=== PATIENT | female | born 1980 | race Caucasian/White ===

== ENCOUNTER 2016-09-16 13:35 | Day surgery (SDC) | payer OTHER ==
[~2016-09-16] VITALS: Ht 157.5 cm; Wt 85.2 kg
[~2016-09-16 13:35] MED LIST: FLUT9.9S NASAL; IBUPROFEN PO
[2016-09-16 14:52] VITALS: Ht 157.5 cm; Wt 85.2 kg
[2016-09-16 16:27] VITALS: BP_SYST 115; BP_SYST 126; BP_DIAS 67; BP_DIAS 69; PULSE 53; RESP 20
--- NOTE | 2016-09-16 18:40 | GILP ---
DATE OF PROCEDURE: NAME OF PROCEDURE: Colonoscopy and biopsy. SURGEON: Fredi Plata MD PREOPERATIVE DIAGNOSIS: Chronic diarrhea. POSTOPERATIVE DIAGNOSES 1. Colonoscopy all the way to the cecum and into the terminal ileum. 2. Normal terminal ileum. 3. Random biopsies were taken to rule out microscopic colitis. 4. Internal hemorrhoids. INDICATION FOR THE PROCEDURE: Ms. Gerda Moreno is a 36-year-old female patient who was complaining of chronic diarrhea. The patient was scheduled for colonoscopy for further evaluation. The procedure and possible complications were well explained to the patient. She understood and con sented to the procedure. DESCRIPTION OF PROCEDURE: Under the influence of anesthesia, the colonoscope was carefully introduc ed in the rectum and under direct vision, it was advanced all the way to the cecum and through the i leocecal valve into the terminal ileum. FINDINGS: The terminal ileum was normal. The colonic mucosa was normal. Random biopsies were take n to rule out microscopic colitis. The patient was noted to have internal hemorrhoids. She tolerated the procedure very well and there was no complication from the procedure. At the end of the procedures, she was awake with stable vital signs, and she was discharged home to the care of her family. IMPRESSION: Please see postoperative diagnoses. PLAN: 1. Bentyl 10 mg p.o. t.i.d. a.c. 2. Await histopathology report. Dictated By: FREDI ROSEN/RONN Conf#: [id number] DID#: [id number]
== END 2016-09-16 16:38 | disposition home or self-care (01) ==
LOC: GIL 13:35
PROVIDERS: ATTEND Internal Medicine Gastroenterology
DX: R19.7 Diarrhea, unspecified (principal); K64.8 Other hemorrhoids
CPT/HCPCS: 45380; 88305; Z7610

== ENCOUNTER 2016-10-21 13:16 | Day surgery (SDC) | payer OTHER ==
[~2016-10-21] VITALS: Ht 157.5 cm; Wt 85.0 kg
[2016-10-21] VITALS (10 sets, daily range): BP systolic 102–122; BP diastolic 67–91; PULSE 69–114; RESP 16–28; Ht 157.5 cm; Wt 85.0 kg
[~2016-10-21 13:16] MED LIST changes: -FLUT9.9S NASAL
--- NOTE | 2016-10-21 15:17 | HPN ---
Date/Time of Note Date/Time of Note DATE: 10/21/16 TIME: 15:17 Interval H&P Admission Note Pt. seen H&P reviewed: No system changes JUAN HARRIS MD Oct 21, 2016 15:17
[2016-10-21] MEDS ORDERED: ROCURONIUM 50 MG INJ ONE (16:00)
[2016-10-21] MEDS ORDERED: PROPOFOL 20 ML ONE (16:00)
[2016-10-21] MEDS ORDERED: MEPERIDINE 100 MG INJ ONE (16:00)
[2016-10-21] MEDS ORDERED: LIDOCAINE 2% (SDV) 5 ML INJ ONE (16:00)
[2016-10-21] MEDS ORDERED: SUCCINYLCHOLINE CHLORIDE 100 MG/5 ML SYG IV ONE (16:00)
[2016-10-21] MEDS ORDERED: GLYCOPYRROLATE 0.4 MG INJ ONE (16:00)
[2016-10-21] MEDS ORDERED: NEOSTIGMINE 3 MG/3 ML SYRINGE ONE (16:00)
[2016-10-21] MEDS ORDERED: DEXAMETHASONE 4 MG/ML 1 ML INJ ONE (16:02)
[2016-10-21] MEDS ORDERED: ONDANSETRON 4 MG INJ ONE (16:02)
[2016-10-21] MEDS ORDERED: LIDOCAINE 1%/EPI (MDV) 20 ML INJ ONE (16:06)
[2016-10-21] MEDS ORDERED: COCAINE 4% 4 ML TOP ONE (16:07)
[2016-10-21] MEDS ORDERED: BACITRACIN/POLYMYXIN 28.35 GM OINT TOP ONE (16:08)
--- NOTE | 2016-10-21 16:49 | OPR ---
Date/Time of Note Date/Time of Note DATE: 10/21/16 TIME: 16:47 Operative Report Procedure Date: Oct 21, 2016 Preoperative Diagnosis DNS, ITH Postoperative Diagnosis Same Operation Performed Septoplasty, submucous resection of inferior turbinates Surgeon: JUAN HARRIS MD Anesthesia: general Estimated Blood Loss: minimal Complications: None Pt Condition Post Procedure: stable Indications Nasal congestion. Operative\Procedure Findings Description of procedure: The patient was identified in the holding area. We had a discussion to confirm understanding of all indications risks benefits alternatives and postoperative care associated with the operation. The patient signed informed consent was taken to the operating room. The patient was laid supine on the operating room table and general anesthesia was achieved without difficulty. The face was draped in sterile fashion and the nose was packed with 4% cocaine pledgets. The nasal septum was infiltrated with 5 cc of 1% lidocaine with epinephrine in the submucoperiosteal plane bilaterally. A left sided [place] incision was made and submucoperichondreal flaps were raised. The bony cartilaginous junction of the septum was identified and entered. A deviated segments of bone and cartilage were isolated. A double- action scissor was used to transect the bony deviated segment of the skull base after which a Gayathri forcep was used to resect deviated segment of bone and cartilage. Care was taken to avoid excess cartilaginous resection. The flaps were returned to normal position and anterior rhinoscopy reveals midline septum. At this point the right inferior turbinate was medialized with a Mina elevator. The Coblation wand on a setting of 6 was used to enter the turbinate in the inferior medial submucosal compartment. 10 seconds of Coblation were performed at the 3rd 2nd and 1st ramírez after which the turbinate was crushed laterally into the lateral nasal wall with a Bishop elevator. The contralateral turbinate was addressed in similar fashion to complete the bilateral submucous resection and lateral fracturing of the inferior turbinates. A Merocel pack was placed on each side. The patient was awakened, extubated and taken to the PACU in stable condition. Complications: None. JUAN HARRIS MD Oct 21, 2016 16:49
[2016-10-21] MEDS ORDERED: HYDROCODONE/APAP (5/325) TAB PO PRN (17:00)
== END 2016-10-21 18:28 | disposition home or self-care (01) ==
LOC: SDS 13:16
PROVIDERS: ATTEND Otolaryngology
DX: J34.2 Deviated nasal septum (principal); E66.9 Obesity, unspecified; Z68.34 Body mass index [BMI] 34.0-34.9, adult
CPT/HCPCS: 30140; 30520; J0330; J1100; J2175; J2405; J2710; Z7512; Z7610

== ENCOUNTER 2017-04-28 05:53 | Inpatient (IN) | payer OTHER ==
[2017-04-27 10:07] VITALS: BMI 33.9
[~2017-04-28] VITALS: Ht 157.5 cm; Wt 82.9 kg
[2017-04-28] VITALS (23 sets, daily range): BP systolic 93–117; BP diastolic 49–75; PULSE 64–108; RESP 12–33; Ht 157.5 cm; Wt 82.9 kg
[2017-04-28] MEDS ORDERED: Metronidazole 500 MG in NS 100 ML IVPB SCH (06:00)
[2017-04-28] MEDS ORDERED: CEFAZOLIN 2 GM/50 ML (PMX) 50 ML IVPB SCH (06:00)
[2017-04-28] MEDS ORDERED: D5-NS + KCL 20 MEQ 1,000 ML IV SCH (06:00)
[2017-04-28] MEDS ORDERED: HYDR-906 PO (06:25)
[2017-04-28] MEDS ORDERED: THROMBIN 5000 UNIT VIAL ONE (06:58)
[2017-04-28] MEDS ORDERED: VASOPRESSIN 20 UNITS INJ ONE (06:58)
[2017-04-28] MEDS ORDERED: METHYLENE BLUE 1% 10 ML INJ ONE (06:58)
[2017-04-28] MEDS ORDERED: ROCURONIUM 50 MG INJ ONE (07:32)
[2017-04-28] MEDS ORDERED: PROPOFOL 20 ML ONE (07:33)
[2017-04-28] MEDS ORDERED: FENTAnyl 50 MCG/ML VIAL ONE (07:33)
[2017-04-28] MEDS ORDERED: MIDAZOLAM 1 MG/ML 2 ML INJ ONE (07:33)
[2017-04-28] MEDS ORDERED: morphine SULFATE/PF (10 MG/10 ML) INJ ONE (07:33)
[2017-04-28] MEDS ORDERED: LIDOCAINE 1% (MDV) 20 ML INJ ONE (07:33)
[2017-04-28] MEDS ORDERED: metroNIDAZOLE 500 MG/NS (PMX) 100 ML IVPB ONE (07:37)
[2017-04-28] MEDS ORDERED: CEFAZOLIN 1 GM INJ ONE (07:37)
--- NOTE | 2017-04-28 07:57 | HPN ---
Date/Time of Note Date/Time of Note DATE: 04/28/17 TIME: 07:57 Interval H&P Admission Note Pt. seen H&P reviewed: No system changes MIGUEL TARANGO MD Apr 28, 2017 07:57
[2017-04-28] MEDS ORDERED: DEXAMETHASONE 4 MG/ML 1 ML INJ ONE (08:33)
[2017-04-28] MEDS ORDERED: FAMOTIDINE 20 MG INJ ONE (08:33)
[2017-04-28] MEDS ORDERED: ONDANSETRON 4 MG INJ ONE (08:33)
[2017-04-28] MEDS ORDERED: SUGAMMADEX SODIUM 200 MG/2 ML VIAL IV ONE (10:12)
[2017-04-28] MEDS: HYDROmorphONE 1 MG/ML SYG IV PRN (10:56)
[2017-04-28] MEDS ORDERED: MEPERIDINE 25 MG INJ ONE (10:59)
[2017-04-28] MEDS ORDERED: CEFAZOLIN 1 GM in SOD CHLORIDE 0.9% 100 ML IVPB SCH (11:00)
[2017-04-28] MEDS ORDERED: HYDROmorphONE 1 MG/ML SYG IV PRN (11:00)
[2017-04-28] MEDS ORDERED: NALOXONE (0.4 MG/ML) INJ IV PRN (11:00)
[2017-04-28] MEDS ORDERED: KETOROLAC 30 MG INJ IV PRN (11:00)
[2017-04-28] MEDS ORDERED: ZOLPIDEM 5 MG TAB PO PRN (11:00)
[2017-04-28] MEDS ORDERED: DIPHENHYDRAMINE 50 MG INJ IV PRN (11:00)
[2017-04-28] MEDS ORDERED: NALBUPHINE HCL (10 MG/1 ML) INJ IV PRN (11:00)
[2017-04-28] MEDS ORDERED: ONDANSETRON 4 MG INJ IV PRN (11:00)
--- NOTE | 2017-04-28 11:03 | OPPN ---
Date/Time of Note Date/Time of Note DATE: 04/28/17 TIME: 10:58 Operative Report Preoperative Diagnosis adnexal mass and endometriosis Postoperative Diagnosis same with adhesions; path pending Operation/Procedure Performed Right cystectomy, right ureteral dissection, bilateral utero-sacral ablation, ablation of endometriosis Surgeon see signature line nutrition services assistant Hortencia FLEMING Anesthesia: other Estimated blood loss: 10 - 50 ml's Transfusion Required none Specimen right paratubal cyst Grafts/Implants none Complications none MIGUEL TARANGO MD Apr 28, 2017 11:03
[2017-04-28] MEDS ORDERED: MEPERIDINE 25 MG INJ IV ONE (11:30)
--- NOTE | 2017-04-28 13:08 | HP ---
DATE OF ADMISSION: 04/28/2017 HISTORY OF PRESENT ILLNESS: The patient is a 36-year-old female with history of adnexal mass and endometriosis status post prior surgery for endometriosis. The patient denies any chronic conditions. The patient was had recurrent endometriosis with abdominal pain. The patient was seen by Dr. Clifton in surgical consultation. Patient was brought to the hospital and underwent right cystectomy for right adnexal mass and right ureteral dissection and underwent bilateral uterosacral ablation, ablation of endometriosis. Postoperatively patient is experiencing moderate pain and mild nausea. The patient will be admitted for further management. PAST MEDICAL HISTORY: Per HPI. PAST SURGICAL HISTORY: Per HPI. SOCIAL HISTORY: The patient smokes about 10 cigarettes per day although stated she quit 2 weeks ago. Patient denies any alcohol use. Denies any illicit drug use. ALLERGIES: NO KNOWN ALLERGIES. MEDICATIONS: Monon and ibuprofen p.r.n. for pain. REVIEW OF SYSTEMS: A 12-point review of system is negative unless what is mentioned in HPI. PHYSICAL EXAMINATION: GENERAL: Well developed, obese female. Currently is awake, but forgetful, in no acute distress. VITAL SIGNS: Temperature is 97.9, pulse is 86, blood pressure 104/58, respiratory rate 18, oxygen saturation is 100 percent on 5 L nasal cannula. HEENT: Head is atraumatic, normocephalic. Pupils equal, round, reactive to light and accommodation. Oral mucosa is pink and moist. NECK: Supple. No cervical lymphadenopathy. No thyromegaly. CHEST: Lungs clear bilaterally. There is no rhonchi, wheezes, rales noted. CARDIOVASCULAR: Normal S1, S2. No murmurs, gallops, clicks, rubs noted. ABDOMEN: Protuberant, soft. Status post laparoscopic incisions which is dry, clean, and intact with bandages. Bowel sounds hypoactive. EXTREMITIES: No edema, clubbing, cyanosis. Pulses equal bilaterally 2+. SKIN: No rash. No petechiae noted. NEUROLOGICAL: Patient is awake, alert, and oriented x3. No focal deficits noted. Motor strength 5/5 in all extremities. ASSESSMENT AND PLAN: Adnexal mass and endometriosis, status post right cystectomy, right ureteral dissection, bilateral uterosacral ablation, ablation of endometriosis. We will continue Monon and morphine p.r.n. for pain and Zofran p.r.n. for nausea. Continue intravenous fluids and postoperative antibiotics. Follow up surgical recommendation. Pepcid for peptic ulcer disease prophylaxis and sequential compression device for deep venous thrombosis prophylaxis. Further recommendations based on clinical course. Plan of care discussed with Dr. Edmonds. Dictated By: Xin Mitchell NP /suzanna/fer /Document#: [id number]
[2017-04-28] MEDS: POTASSIUM CHLORIDE 20 MEQ in LACTATED RINGER'S 990 ML IV SCH (14:11)
[2017-04-28] MEDS: TRIMETHOBENZAMIDE 100 MG/ML VIAL IM PRN ×2 (14:28→23:25)
[2017-04-28] MEDS: CEFAZOLIN 1 GM/50 ML (PMX) 50 ML IVPB SCH ×2 (15:49→23:29)
[2017-04-28] MEDS: metroNIDAZOLE 500 MG/NS (PMX) 100 ML IVPB SCH (16:53)
[2017-04-28] MEDS: FAMOTIDINE 20 MG INJ IV SCH (20:29)
[2017-04-29] MEDS: metroNIDAZOLE 500 MG/NS (PMX) 100 ML IVPB SCH ×2 (00:08→08:33)
[2017-04-29] MEDS: HYDROmorphONE 1 MG/ML SYG IV PRN (00:19)
[2017-04-29 00:20] VITALS: BP 103/63; RESP 20
[2017-04-29] MEDS: POTASSIUM CHLORIDE 20 MEQ in LACTATED RINGER'S 990 ML IV SCH ×3 (00:30→12:27)
[2017-04-29 05:11] VITALS: BP 104/63; PULSE 84; RESP 20
[2017-04-29 05:19] LABS: BASOPHILS % 0.2 % (0.0-2.0); EOSINOPHILS % 0.1 % (0.0-7.0); HEMATOCRIT 38.9 % (37.0-47.0); HEMOGLOBIN 13.3 g/dl (12.0-16.0); LYMPHOCYTES # 1.8 10^3/ul (0.8-2.9); LYMPHOCYTES % 22.6 % (15.0-51.0); MEAN CORPUSCULAR HGB CONC 34.2 g/dl (32.0-37.0); MEAN CORPUSCULAR VOLUME 93.7 fl (82.0-101.0); MEAN PLATELET VOLUME 10.1 fl (7.4-10.4); MONOCYTE # 0.6 10^3/ul (0.3-0.9); MONOCYTES % 7.2 % (0.0-11.0); NEUTROPHIL # 5.6 10^3/ul (1.6-7.5); NEUTROPHILS % 69.7 % (39.0-77.0); PLATELET COUNT 163 10^3/UL (140-415); RED BLOOD COUNT 4.15 10^6/ul (4.20-5.40); RED CELL DISTRIBUTION WIDTH 12.1 % (11.5-14.5); WHITE BLOOD COUNT 8.1 10^3/ul (4.8-10.8)
[2017-04-29 05:33] LABS: CALCIUM 8.7 mg/dl (8.4-10.2); CREATININE 0.52 mg/dl (0.44-1.00); POTASSIUM 3.8 mmol/L (3.5-5.1)
[2017-04-29] MEDS: CEFAZOLIN 1 GM/50 ML (PMX) 50 ML IVPB SCH (07:44)
[2017-04-29 07:49] VITALS: BP 100/57; RESP 18
[2017-04-29] MEDS: FAMOTIDINE 20 MG INJ IV SCH (08:33)
[2017-04-29] MEDS ORDERED: morphine 2 MG INJ ONE (08:43)
[2017-04-29] MEDS ORDERED: KETOROLAC 15 MG INJ IV PRN (11:00)
[2017-04-29] MEDS ORDERED: morphine 2 MG INJ IV PRN (11:00)
[2017-04-29] MEDS ORDERED: ONDANSETRON 4 MG INJ IV PRN (11:00)
[2017-04-29] MEDS ORDERED: DIPHENHYDRAMINE 50 MG INJ IV PRN (11:00)
[2017-04-29] MEDS: HYDROCODONE/APAP (5/325) TAB PO PRN ×2 (12:25→18:10)
[2017-04-29 14:13] VITALS: BP 105/73; RESP 18
[2017-04-29] MEDS ORDERED: HYDR-906 PO (15:56)
--- NOTE | 2017-04-29 16:18 | PN ---
Date/Time of Note Date/Time of Note DATE: 04/29/17 TIME: 16:04 Assessment/Plan VTE Prophylaxis VTE Prophylaxis Intervention: SCD's Lines/Catheters IV Catheter Type (from Nrsg): Peripheral IV Urinary Cath still in place: No Assessment/Plan Chief Complaint/Hosp Course [place] d/mike pt is able to void,pain is well controlled. Problems: Assessment/Plan Adnexal mass and endometriosis, status post right cystectomy, right ureteral dissection, bilateral uterosacral ablation, ablation of endometriosis. Exam/Review of Systems Vital Signs Vitals Vital Signs Date Time Temp Pulse Resp B/P Pulse Ox O2 Delivery O2 Flow Rate FiO2 04/29/17 14:13 98.4 62 18 105/73 94 04/29/17 08:30 Nasal Cannula 2.0 Intake and Output 04/28/17 04/28/17 04/29/17 15:00 23:00 07:00 Intake Total 1900 ml 720 ml 1530 ml Output Total 950 ml 2650 ml 2100 ml Balance 950 ml -1930 ml -570 ml Exam Constitutional: alert Head: normocephalic Neck: supple Respiratory: normal air movement Cardiovascular: nl pulses Gastrointestinal: non-tender, other (s/p surgery), soft Musculoskeletal: nl gait and stance Results Result Diagram: 04/29/177 04/29/17 044 Results 24 hrs Laboratory Tests Test 04/29/17 04:47 04/29/17 05:50 White Blood Count 8.1 Red Blood Count 4.15 L Hemoglobin 13.3 Hematocrit 38.9 Mean Corpuscular Volume 93.7 Mean Corpuscular Hemoglobin 32.0 Mean Corpuscular Hemoglobin Concent 34.2 Red Cell Distribution Width 12.1 Platelet Count 163 Mean Platelet Volume 10.1 # Neutrophils % 69.7 Lymphocytes % 22.6 Monocytes % 7.2 Eosinophils % 0.1 Basophils % 0.2 Nucleated Red Blood Cells % 0.0 Neutrophils # 5.6 Lymphocytes # 1.8 Monocytes # 0.6 Eosinophils # 0.0 Basophils # 0.0 Nucleated Red Blood Cells # 0.0 Sodium Level 141 Potassium Level 3.8 Chloride Level 109 Carbon Dioxide Level 26 Anion Gap 10 Blood Urea Nitrogen 3 L Creatinine 0.52 Glucose Level 94 Calcium Level 8.7 Lab Scanned Report LAB Medications Medications Current Medications Morphine Sulfate (morphine) 2 mg Q2H PRN IV PAIN LEVEL 6-10 Last administered on 04/29/17 08:47; Admin Dose 2 MG; Start 04/29/17 at 11:00 Acetaminophen/ Hydrocodone Bitart ([place] (5/325)) 1 tab Q6H PRN PO PAIN LEVEL 6 -10 Last administered on 04/29/17 12:25; Admin Dose 1 TAB; Start 04/29/17 at 11 :00 Ketorolac Tromethamine (Toradol) 15 mg Q6H PRN IV PAIN; Start 04/29/17 at 11:00 ; Stop 05/02/17 at 10:59 Diphenhydramine HCl (Benadryl) 25 mg Q6H PRN IV ITCHING; Start 04/29/17 at 11: 00 Ondansetron HCl (Zofran Inj) 4 mg Q6H PRN IV NAUSEA AND/OR VOMITING; Start at 11:00 Famotidine 20 mg 20 mg Q12 IV Last administered on 04/29/17 08:33; Admin Dose 20 MG; Start 04/28/17 at 21:00 Potassium Chloride/Lactated Ringer's (KCl/Lr) 1,000 ml @ 80 mls/hr [id number] IV Last administered on 04/29/17 05:02; Admin Dose 80 MLS/HR; Start 04/28/17 at 12 :00 SERGEY MCKEON Apr 29, 2017 16:18
--- NOTE | 2017-04-29 17:01 | PN ---
Date/Time of Note Date/Time of Note DATE: 04/29/17 TIME: 16:57 Assessment/Plan VTE Prophylaxis VTE Prophylaxis Intervention: SCD's Lines/Catheters IV Catheter Type (from Nrsg): Peripheral IV Urinary Cath still in place: No Assessment/Plan Chief Complaint/Hosp Course endometriosis and pain Problems: Assessment/Plan A- doing well P- discharge Subjective 24 Hr Interval Summary Free Text/Dictation + flatus eats well Exam/Review of Systems Vital Signs Vitals Vital Signs Date Time Temp Pulse Resp B/P Pulse Ox O2 Delivery O2 Flow Rate FiO2 04/29/17 14:13 98.4 62 18 105/73 94 04/29/17 08:30 Nasal Cannula 2.0 Intake and Output 04/28/17 04/28/17 04/29/17 15:00 23:00 07:00 Intake Total 1900 ml 720 ml 1530 ml Output Total 950 ml 2650 ml 2100 ml Balance 950 ml -1930 ml -570 ml Exam Resp- clear CVS- NSR Abd- soft, NT Ext- NT no edema Results Result Diagram: 04/29/1744604/29/17446 Results 24 hrs Laboratory Tests Test 04/29/17 04:47 04/29/17 05:50 White Blood Count 8.1 Red Blood Count 4.15 L Hemoglobin 13.3 Hematocrit 38.9 Mean Corpuscular Volume 93.7 Mean Corpuscular Hemoglobin 32.0 Mean Corpuscular Hemoglobin Concent 34.2 Red Cell Distribution Width 12.1 Platelet Count 163 Mean Platelet Volume 10.1 # Neutrophils % 69.7 Lymphocytes % 22.6 Monocytes % 7.2 Eosinophils % 0.1 Basophils % 0.2 Nucleated Red Blood Cells % 0.0 Neutrophils # 5.6 Lymphocytes # 1.8 Monocytes # 0.6 Eosinophils # 0.0 Basophils # 0.0 Nucleated Red Blood Cells # 0.0 Sodium Level 141 Potassium Level 3.8 Chloride Level 109 Carbon Dioxide Level 26 Anion Gap 10 Blood Urea Nitrogen 3 L Creatinine 0.52 Glucose Level 94 Calcium Level 8.7 Lab Scanned Report LAB Medications Medications Current Medications Morphine Sulfate (morphine) 2 mg Q2H PRN IV PAIN LEVEL 6-10 Last administered on 04/29/17t 08:47; Admin Dose 2 MG; Start 04/29/17 at 11:00 Acetaminophen/ Hydrocodone Bitart ([place] (5/325)) 1 tab Q6H PRN PO PAIN LEVEL 6 -10 Last administered on 04/29/17 12:25; Admin Dose 1 TAB; Start 04/29/17 at 11 :00 Ketorolac Tromethamine (Toradol) 15 mg Q6H PRN IV PAIN; Start 04/29/17 at 11:00 ; Stop 05/02/17 at 10:59 Diphenhydramine HCl (Benadryl) 25 mg Q6H PRN IV ITCHING; Start 04/29/17 at 11: 00 Ondansetron HCl (Zofran Inj) 4 mg Q6H PRN IV NAUSEA AND/OR VOMITING; Start at 11:00 Famotidine 20 mg 20 mg Q12 IV Last administered on 04/29/17 08:33; Admin Dose 20 MG; Start 04/28/17 at 21:00 Potassium Chloride/Lactated Ringer's (KCl/Lr) 1,000 ml @ 80 mls/hr [id number] IV Last administered on 04/29/17 05:02; Admin Dose 80 MLS/HR; Start 04/28/17 at 12 :00 MIGUEL TARANGO MD Apr 29, 2017 17:01
--- NOTE | 2017-04-29 18:04 | DS ---
Date/Time of Note Date/Time of Note DATE: 04/29/17 TIME: 18:03 Discharge Summary Admission/Discharge Info Admit Date/Time Apr 28, 2017 at 05:53 Discharge Date/Time Patient Condition: Stable Hx of Present Illness The patient is a 36-year-old female with history of adnexal mass and endometriosis status post prior surgery for endometriosis. The patient denies any chronic conditions. The patient was had recurrent endometriosis with abdominal pain. The patient was seen by Dr. Clifton in surgical consultation. Patient was brought to the hospital and underwent right cystectomy for right adnexal mass and right ureteral dissection and underwent bilateral uterosacral ablation, ablation of endometriosis. Postoperatively patient is experiencing moderate pain and mild nausea. The patient will be admitted for further management. Hospital Course Adnexal mass and endometriosis, status post right cystectomy, right ureteral dissection, bilateral uterosacral ablation, ablation of endometriosis. We will continue [place] and morphine p.r.n. for pain and Zofran p.r.n. for nausea. Continue intravenous fluids and postoperative antibiotics. Follow up surgical recommendation. Pepcid for peptic ulcer disease prophylaxis and sequential compression device for deep venous thrombosis prophylaxis. Home Meds Active Scripts Hydrocodone/Acetaminophen ([place] 5-325 Tablet) 1 Each Tablet, 1 EACH PO Q4 for PAIN, #30 TAB Prov:SERGEY MCKEON 04/29/17 Discontinued Reported Medications [Ibuprofen] No Conflict Check, PO DAILY for PAIN 05/01/16 Follow-up Plan Up with Dr. Clifton in 1-2 weeks Primary Care Provider Tomy Hinojosa MD Time spent on discharge: < 30 minutes Pending Labs Laboratory Tests Test 04/29/17 04:47 04/29/17 05:50 White Blood Count 8.110^3/ul (4.8-10.8) Red Blood Count 4.1510^6/ul (4.20-5.40) Hemoglobin 13.3g/dl (12.0-16.0) Hematocrit 38.9% (37.0-47.0) Mean Corpuscular Volume 93.7fl (82.0-101.0) Mean Corpuscular Hemoglobin 32.0pg (29.0-33.0) Mean Corpuscular Hemoglobin Concent 34.2g/dl (32.0-37.0) Red Cell Distribution Width 12.1% (11.5-14.5) Platelet Count 78488^3/UL (140-415) Mean Platelet Volume 10.1fl (7.4-10.4) Neutrophils % 69.7% (39.0-77.0) Lymphocytes % 22.6% (15.0-51.0) Monocytes % 7.2% (0.0-11.0) Eosinophils % 0.1% (0.0-7.0) Basophils % 0.2% (0.0-2.0) Nucleated Red Blood Cells % 0.0/100WBC (0.0-0.0) Neutrophils # 5.610^3/ul (1.6-7.5) Lymphocytes # 1.810^3/ul (0.8-2.9) Monocytes # 0.610^3/ul (0.3-0.9) Eosinophils # 0.010^3/ul (0.0-0.5) Basophils # 0.010^3/ul (0.0-0.1) Nucleated Red Blood Cells # 0.010^3/ul (0.0-0.0) Sodium Level 141mmol/L (135-144) Potassium Level 3.8mmol/L (3.5-5.1) Chloride Level 109mmol/L (97-110) Carbon Dioxide Level 26mmol/L (21-31) Anion Gap 10 (8-16) Blood Urea Nitrogen 3mg/dl (7-20) Creatinine 0.52mg/dl (0.44-1.00) Glucose Level 94mg/dl (70-220) Calcium Level 8.7mg/dl (8.4-10.2) Lab Scanned Report [id number] SERGEY MCKEON Apr 29, 2017 18:04
[2017-04-30] MEDS ORDERED: FAMOTIDINE 20 MG TAB PO SCH (09:00)
--- NOTE | 2017-05-02 13:12 | OPR ---
Date/Time of Note Date/Time of Note DATE: 05/02/17 TIME: 13:11 Operative Report Free Text/Dictation OPERATIVE REPORT [facility] Name: Gerda Moreno Medical Date: 04/28/17 Preoperative Diagnosis: 1- Adnexal mass 2- Chronic pelvic pain and known endometriosis Postoperative Diagnosis: 1- Same; pathology pending 2- Pelvic adhesions 3- Right uretral stricture Procedures: 1- Right para-tubal cystectomy 2- Right ureteral dissection with repositioning 3- Endometriosis ablation and electrocautery of utero-sacral ligaments Surgeon: Dr. Tarango Drug Coordinator: Hortencia Morton Anesthesia: General Indications for Procedure: The patient is a 36- year old female with a 4- cm cystic right sided pelvic mass and pain and a history of endometriosis with normal markers as appropriate for the patients age with all risks considered. After all options were presented with risks and benefits she agreed to a laparoscopy with a probable cystectomy, possible salpingoophorectomy and ablation of endometriosis and utero -sacral ligament ablation vs possible staging. Findings and Summary After exploration we observed very extensive adhesions, especially involving the Name: Gerda Moreno Medical mass and sidewall. A right retroperitoneal opening was needed and the ureter was dissected and mobilized, permitting enterolysis and the the cystic structure to be mobilized and a cystectomy was completed and a negative frozen section was obtained consistent with a benign mass. With the ureter visualized adjacent endometriosis was ablated and the utero-sacral ligament ligaments were cauterized. Findings and Procedure: After being prepped and draped in the usual manner a 5-millimeter trocar was inserted directly cephlad to the umbilicus without incident. Subsequently, we insufflated to 15 mm Hg and inserted two 5 millimeter trocars laterally without incident and then placed and a 12 mm trocar suprapubically without incident. At this time, the right adnexa was observed to be enlarged to 4-5 cm and the mass and densely adherent to the sidewall and was darkened and a para-tubal mass with broad ligament endometriosis. The other side was grossly normal in appearance other than endometriosis. Hence, on the side of the pathology, the retroperitoneum was opened with the Omni laterally and the ureter identified and noted to be densely adherent to the broad ligament adjacent to the aforementioned mass and somewhat strictured. The ureter was dissected and repositioned laterally with a endo-dissector and Omni with care and lateralized. Subsequently, the capsule was cut with a Gyrus bipolar cutting forceps and Omni and extended. The cyst was enucleated from the adjacent tissue with sharp with blunt dissection using counter traction with the Thunderbeat , endo-dissector and Omni. The Omni and endo-dissector were used throughout the procedure for deeper hemostasis. The cyst was placed in an endo- sac, and the contents evacuated as completely as possible by cutting with the Omni and aspirating. The sac was then removed through the 12 mm suprapubic trocar site and a negative frozen section was obtained consistent with a benign cyst. [facility] the base of the cyst was ablated with the argon beam fountain manager using low wattage. At this time we fulgurated the broad ligament with the ureter visualized and the ovary minimally all for endometriosis and with the ureter visualized the utero-sacral ligament immediately adjacent to the uterus was cauterized with a Thunderbeat. Subsequently, contralateralally the retroperitoneum was opened laterally, the ureter visualized and endometriosis ablated with the argon beam fountain manager at appropriate low wattage. The utero- sacral ligament was cauterized as described contralateralally. After irrigating and assuring hemostasis the 12 millimeter trocar was removed and the fascia was closed with 0-vicryl using an endo-close devise. The gas was removed and the skin of all sites then closed with 4-0 Monocryl suture. The EBL was 25cc and the patient tolerated the procedure well and left the OR in good condition. Elvis Tarango M.D. Surgeon see signature line Anesthesia Type: other Estimated Blood Loss: 10 - 50 ml's ELVIS TARANGO MD May 02, 2017 13:12
== END 2017-04-29 18:40 | disposition home or self-care (01) | DRG 743 ==
LOC: REC 05:53 → EDSTATUS 07:30 → MS1 11:53
PROC: 0U5B4ZZ Destruction of Endometrium, Percutaneous Endoscopic Approach (ICD-10-PCS; 2017-04-28)
PROC: 0TS64ZZ Reposition Right Ureter, Percutaneous Endoscopic Approach (ICD-10-PCS; 2017-04-28)
PROC: 0UB04ZZ Excision of Right Ovary, Percutaneous Endoscopic Approach (ICD-10-PCS; principal; 2017-04-28 07:30)
DX: N83.201 Unspecified ovarian cyst, right side (principal); N80.3 Endometriosis of pelvic peritoneum
CPT/HCPCS: 80048; 85025; 86850; 86900; 86901; 86920; 87086; 88304; J0690; J1100; J1170; J1200; J2175; J2250; J2270; J2274; J2405; J3010; J3250; J3480; J7120

== ENCOUNTER 2017-05-06 07:57 | Emergency (ER) | payer OTHER ==
[~2017-05-06] VITALS: Ht 157.5 cm; Wt 83.0 kg
[~2017-05-06 07:57] MED LIST changes: +HYDR-906 PO; -IBUPROFEN PO
[2017-05-06 07:58] VITALS: Ht 157.5 cm; Wt 83.0 kg
[2017-05-06] MEDS ORDERED: morphine 4 MG/ML VIAL IV STA (08:01)
[2017-05-06] MEDS ORDERED: ONDANSETRON 4 MG INJ IV STA (08:01)
[2017-05-06] MEDS ORDERED: KETOROLAC 30 MG INJ IV STA (08:01)
[2017-05-06] MEDS ORDERED: SOD CHLORIDE 0.9% 1,000 ML IV STA (08:01)
--- NOTE | 2017-05-06 08:44 | ERD ---
ER Documentation Chief Complaint Date/Time DATE: 05/06/17 TIME: 08:40 Chief Complaint PELVIC PAIN , HAD ENDOMETRIAL ABLATION LAST THURSDAY HPI This is a 36-year-old female postop day 8 after the patient underwent an endometrial ablation for an adnexal mass and endometriosis. Her surgeon was OB/ RADIATION PROTECTION ENGINEER, Dr. Clifton, who performed the surgery at [facility]. Has been taking [place] for analgesia control. However the patient indicates that upon awakening this morning 2 hours prior to arrival her postoperative pain significantly worsened. She states the pain is diffuse abdominal cramping , 10 out of 10 in intensity that is worse when standing and better when lying supine. She states the pain also radiates to the rectum. She denies any abnormal vaginal bleeding. She has had no frequency urgency or dysuria. She denies any fever shaking or chills. She denies any numbness or tingling of her lower extremities. She has no shortness of breath at rest or exertion. She denies any calf tenderness. ROS All systems reviewed and are negative except as per history of present illness. Medications Home Meds Active Scripts Ibuprofen* (Motrin*) 800 Mg Tab, 800 MG PO Q6H Y for PAIN AND OR ELEVATED TEMP, #30 TAB Prov:SIDNEY NASCIMENTO 05/06/17 Discontinued Reported Medications [Ibuprofen] No Conflict Check, PO DAILY for PAIN 05/01/16 Discontinued Scripts Hydrocodone/Acetaminophen ([place]estead 5-325 Tablet) 1 Each Tablet, 1 EACH PO Q4 for PAIN, #30 TAB Prov:SERGEY MCKEON 04/29/17 Allergies Allergies: Coded Allergies: No Known Allergy (Unverified , 04/28/17) PMhx/Soc History of Surgery: Yes (T AND A, LAP FOR ENDOMETRIOSIS) Anesthesia Reaction: No Hx Neurological Disorder: No Hx Respiratory Disorders: No Hx Cardiac Disorders: No Hx Psychiatric Problems: No Hx Miscellaneous Medical Probl: No Hx Alcohol Use: No Hx Substance Use: No Hx Tobacco Use: Yes Smoking Status: Former smoker Physical Exam Vitals Vital Signs Date Time Temp Pulse Resp B/P Pulse Ox O2 Delivery O2 Flow Rate FiO2 05/06/17 07:58 98.2 84 18 120/76 99 Physical Exam Constitutional:Well-developed. Well-nourished. HEENT:Normocephalic. Atraumatic.Pupils were equal round reactive to light. Moist mucous membranes.No tonsillar exudates. Neck: No nuchal rigidity. No lymphadenopathy. No posterior cervical spine tenderness or step-offs. Respiratory: Not using accessory muscles of respiration.Lungs were clear to auscultation bilaterally. No rhonchi. No rales. No wheezing. Cardiovascular: Regular rate regular rhythm.No murmurs. No rubs were appreciated.S1, S2 normal. Distal pulses are palpable 2+ bilaterally. GI: Surgical incision scars in the bilateral lower quadrants umbilicus and suprapubic region were clean dry and intact. Diffuse abdominal tenderness with no rebound or guarding. Bowel sounds were hypoactive. No pulsatile abdominal masses or bruits. No flank or periumbilical ecchymosis. : Pelvic exam was performed by myself and the patient denied a female nurse communications maintainer to be present. There is no gross blood present within the vaginal vault. No cervical motion tenderness. No adnexal tenderness or adnexal masses. No endocervical discharge RECTAL: No surrounding erythremia normal rectal tone and no gross blood per rectum Muscle skeletal: Full range of motion of both the upper and lower extremities bilaterally.Normal muscle tone.No assymetrical calf tenderness or swelling. Skin: No petechia, no purpura. No lesions on the palms or the soles of the feet. No maculopapular rash. NEURO: Patient was alert, awake, orientated x3.No facial droop. Gait observed and normal with no ataxia.Speech had regular rate and rhythm. No focal neurological deficits. Result Diagram: 05/06/17 0845 05/06/17 0845 Results 24 hrs Laboratory Tests Test 05/06/17 08:45 White Blood Count 9.710^3/ul Red Blood Count 4.6710^6/ul Hemoglobin 14.9g/dl Hematocrit 43.2% Mean Corpuscular Volume 92.5fl Mean Corpuscular Hemoglobin 31.9pg Mean Corpuscular Hemoglobin Concent 34.5g/dl Red Cell Distribution Width 12.1% Platelet Count 77029^3/UL Mean Platelet Volume 10.0fl Neutrophils % 60.6% Lymphocytes % 26.9% Monocytes % 5.5% Eosinophils % 6.3% Basophils % 0.4% Nucleated Red Blood Cells % 0.0/100WBC Neutrophils # 5.910^3/ul Lymphocytes # 2.610^3/ul Monocytes # 0.510^3/ul Eosinophils # 0.610^3/ul Basophils # 0.010^3/ul Nucleated Red Blood Cells # 0.010^3/ul Prothrombin Time 13.2Sec Prothrombin Time Ratio 1.0 INR International Normalized Ratio 1.00 Activated Partial Thromboplast Time 29.2Sec Urine Color YELLOW Urine Clarity SLIGHTLY CLOUDY Urine pH 7.0 Urine Specific [place] 1.015 Urine Ketones NEGATIVEmg/dL Urine Nitrite NEGATIVEmg/dL Urine Bilirubin NEGATIVEmg/dL Urine Urobilinogen NEGATIVEmg/dL Urine Leukocyte Esterase TRACELeu/ul Urine Microscopic RBC 0/HPF Urine Microscopic WBC 0/HPF Urine Squamous Epithelial Cells FEW/HPF Urine Bacteria FEW/HPF Urine Hemoglobin NEGATIVEmg/dL Urine Glucose NEGATIVEmg/dL Urine Total Protein NEGATIVEmg/dl Sodium Level 143mmol/L Potassium Level 3.7mmol/L Chloride Level 108mmol/L Carbon Dioxide Level 26mmol/L Anion Gap 13 Blood Urea Nitrogen 8mg/dl Creatinine 0.72mg/dl Glucose Level 103mg/dl Calcium Level 9.3mg/dl Total Bilirubin 0.2mg/dl Direct Bilirubin 0.00mg/dl Indirect Bilirubin 0.2mg/dl Aspartate Amino Transf (AST/SGOT) 26IU/L Alanine Aminotransferase (ALT/SGPT) 41IU/L Alkaline Phosphatase 85IU/L Total Protein 6.9g/dl Albumin 3.9g/dl Globulin 3.00g/dl Albumin/Globulin Ratio 1.30 Current Medications Medications (Trade) Dose Ordered Sig/Jhonatan Route PRN Reason Start Time Stop Time Status Last Admin Dose Admin Sodium Chloride (NS) 1,000 ml @ 1,000 mls/hr Q1H STAT IV 05/06/17 08:01 05/06/17 09:00 DC 05/06/17 08:53 Morphine Sulfate (morphine) 4 mg ONCE STAT IV 05/06/17 08:01 05/06/17 08:03 DC 05/06/17 08:54 Ketorolac Tromethamine (Toradol) 30 mg ONCE STAT IV 05/06/17 08:01 05/06/17 08:03 DC 05/06/17 08:54 Ondansetron HCl (Zofran Inj) 4 mg ONCE STAT IV 05/06/17 08:01 05/06/17 08:03 DC 05/06/17 08:53 IV Flush 10 ml 10 ml STK-MED ONCE .ROUTE 05/06/17 09:02 05/06/17 09:03 DC Sodium Chloride (NS) 100 ml @ ud STK-MED ONCE .ROUTE 05/06/17 09:02 05/06/17 09:03 DC Iohexol (Omnipaque 300mg/ ml) 150 ml STK-MED ONCE .ROUTE 05/06/17 09:02 05/06/17 09:03 DC Procedures/MDM This patient presented to the emergency department with abdominal pain and was seen and evaluated by myself. My differential diagnosis included but was not limited to abdominal aortic aneurysm, appendicitis, pancreatitis, perforated peptic ulcer, perforated viscus, Boerhaaves syndrome or visceral pain such as diverticulitis, DKA, esophagitis, hepatitis or bowel obstruction. The patient was placed on a manager monitoring, continuous pulse oximetry, and IV access was established by nursing staff. She received intravenous morphine Zofran and Toradol. Given that the patient is postop day #[address] I did obtain a CT scan of the abdomen to rule out postoperative complication such as perforation. CT scan reviewed by the radiologist myself indicated the followin. Small amount of free fluid in the cul-de-sac. Negative for abdominal free air or abscess. 2. Low density lesions involving the right and left adnexa likely ovarian cystic masses. Addition the posterior uterine body is not 05 of 0.3 cm low density likely a leiomyoma. A pelvic ultrasound is suggested if clinically indicated for further evaluation. 3. No evidence of gastrointestinal disease. 4. No evidence calcified urinary calculi or obstructive uropathy. 5. Tiny fat containing umbilical hernia without herniated bowel or strangulation. Obtained an ultrasound of the patient's pelvis which indicated the following read by the radiologist: 1. Fibroid in the uterus measuring 3.3 cm in maximal dimension. 2. Left adnexal mass which is probably the ovary with hemorrhagic cysts. Follow -up ultrasound in 3 months advised. 3. Otherwise unremarkable study. Has obtained an ultrasound of the pelvis which showed no abscess is present. The patient had no leukocytosis. There is no evidence of urinary tract infection. Her pain is improved and she does have a postoperative appointment in the next several days with her GOLF COURSE ARCHITECT. I did feel this was normal postoperative pain with no complications. The patient was discharged home in fair condition. They were instructed to return to the emergency department at any time if there was any worsening of their condition. The patient stated they would follow up with their PCP in the next 24-48 hours to initiate a suitable medication regimen under the care of their PCP as well as to allow their PCP to monitor any drug reactions. The patient was discharged home with prescriptions after they gave informed consent to the new medication. They were also fully informed by myself on the adverse effects and adverse drug interactions in order to provide adequate safeguards to prevent possible adverse reactions to medications. Departure Diagnosis: Primary Impression: Postoperative generalized abdominal pain Additional Impression: Hemorrhagic ovarian cyst Condition: Fair SIDNEY NASCIMENTO May 06, 2017 08:44
[2017-05-06] MEDS ORDERED: IOHEXOL 300MG/ML 150 ML BTL ONE (09:02)
[2017-05-06] MEDS ORDERED: SOD CHLORIDE 0.9% 100 ML ONE (09:02)
[2017-05-06 09:10] LABS: BASOPHILS % 0.4 % (0.0-2.0); EOSINOPHILS # 0.6 10^3/ul (0.0-0.5); EOSINOPHILS % 6.3 % (0.0-7.0); HEMATOCRIT 43.2 % (37.0-47.0); HEMOGLOBIN 14.9 g/dl (12.0-16.0); LYMPHOCYTES # 2.6 10^3/ul (0.8-2.9); LYMPHOCYTES % 26.9 % (15.0-51.0); MEAN CORPUSCULAR HEMOGLOBIN 31.9 pg (29.0-33.0); MEAN CORPUSCULAR HGB CONC 34.5 g/dl (32.0-37.0); MEAN CORPUSCULAR VOLUME 92.5 fl (82.0-101.0); MONOCYTE # 0.5 10^3/ul (0.3-0.9); MONOCYTES % 5.5 % (0.0-11.0); NEUTROPHIL # 5.9 10^3/ul (1.6-7.5); NEUTROPHILS % 60.6 % (39.0-77.0); PLATELET COUNT 246 10^3/UL (140-415); RED BLOOD COUNT 4.67 10^6/ul (4.20-5.40); RED CELL DISTRIBUTION WIDTH 12.1 % (11.5-14.5); WHITE BLOOD COUNT 9.7 10^3/ul (4.8-10.8)
[2017-05-06 09:14] LABS: ADD UMIC YES; UR ASCORBIC ACID NEGATIVE (NEGATIVE); UR BACTERIA FEW /HPF (NONE SEEN); UR BILIRUBIN (Dip) NEGATIVE (NEGATIVE); UR BLOOD (Dip) NEGATIVE (NEGATIVE); UR CLARITY SLIGHTLY CLOUDY (CLEAR); UR COLOR YELLOW (YELLOW); UR GLUCOSE (Dip) NEGATIVE (NEGATIVE); UR KETONES (Dip) NEGATIVE (NEGATIVE); UR LEUKOCYTE ESTERASE (Dip) TRACE Leu/ul (NEGATIVE); UR NITRITE (Dip) NEGATIVE (NEGATIVE); UR RBC 0 /HPF (0-5); UR SPECIFIC GRAVITY (Dip) 1.015 (1.003-1.030); UR SQUAMOUS EPITHELIAL CELL FEW /HPF (FEW); UR TOTAL PROTEIN (Dip) NEGATIVE (NEGATIVE); UR UROBILINOGEN (Dip) NEGATIVE (NEGATIVE)
[2017-05-06 09:31] LABS: PROTIME 13.2 Sec (12.2-14.2)
[2017-05-06 09:32] LABS: PARTIAL THROMBOPLASTIN TIME 29.2 Sec (25.0-35.0)
[2017-05-06 09:34] LABS: ALBUMIN 3.9 g/dl (3.3-4.9); ALBUMIN/GLOBULIN RATIO 1.3; BILIRUBIN,INDIRECT 0.2 mg/dl (0-1.1); BILIRUBIN,TOTAL 0.2 mg/dl (0.2-1.3); CALCIUM 9.3 mg/dl (8.4-10.2); CREATININE 0.72 mg/dl (0.44-1.00); POTASSIUM 3.7 mmol/L (3.5-5.1); TOTAL PROTEIN 6.9 g/dl (6.1-8.1)
--- NOTE | 2017-05-06 09:34 | RADRPT ---
PROCEDURE: CT Abdomen and pelvis with contrast. CLINICAL INDICATION: Abdominal pain. Recent surgery for endometriosis. TECHNIQUE: CT scan of the abdomen and pelvis with contrast was performed on a multidetector high-r [employer] CT scan. The patient was scanned following the uncomplicated intravenous administration o f 100 ml Omnipaque-300. Coronal and sagittal reformatted images were obtained from the axial source images. Standard CT of the abdomen pelvis with contrast protocols were performed. The total exam CTDI equals 18.02 mGy and the total exam DLP equals 1051.78 mGy-cm. One or more of the following dose reduction techniques were used: - Automated exposure control. - Adjustment of the mA and/or kV according to patient size. Use of iterative reconstruction technique. COMPARISON: None. FINDINGS: There is a small amount of free fluid in the cul-de-sac. Note that there are low density lesions inv olving the right left adnexa likely ovarian cysts. In the posterior uterine body is a ill-defined ap proximately 1.3 cm low density likely a leiomyoma. Pelvic ultrasound is suggested to further evaluat e these findings if clinically indicated. No other abdominal free fluid. Negative for intra-abdomina l free air, abscesses or lymphadenopathy. The kidneys are normal in size without calcified renal calculi, hydronephrosis or intra renal masses bilaterally. Urinary bladder is contracted but otherwise unremarkable. The liver spleen pancreas adrenal glands and gallbladder are unremarkable. No evidence of biliary du ctal dilation. The stomach, small bowel, large bowel and appendix are unremarkable. The aorta is unremarkable. Mild basilar parenchymal scarring and atelectasis at the lung bases other pickens unremarkable. There is a tiny fat containing umbilical hernia but no herniated bowel or strangulation. Osseous str uctures are unremarkable. IMPRESSION: 1. Small amount of free fluid in the cul-de-sac. Negative for abdominal free air or abscess. 2. Low density lesions involving the right and left adnexa likely ovarian cystic masses. Addition t he posterior uterine body is not 05 of 0.3 cm low density likely a leiomyoma. A pelvic ultrasound is suggested if clinically indicated for further evaluation. 3. No evidence of gastrointestinal disease. 4. No evidence calcified urinary calculi or obstructive uropathy. 5. Tiny fat containing umbilical hernia without herniated bowel or strangulation. RPTAT:AAJJ Nila Groves, Physician Date Time Electronically viewed and signed by Nila Groves Physician on 05/06/2017 09:33 /
[2017-05-06] MEDS ORDERED: IBUP800T25 PO (10:41)
--- NOTE | 2017-05-06 11:39 | RADRPT ---
PROCEDURE: US Pelvis. CLINICAL INDICATION: Pain. History of endometrial ablation 1 week ago. TECHNIQUE: The pelvis was evaluated with transabdominal and transvaginal sonography in the axial a nd sagittal planes. COMPARISON: CT scan of the abdomen and pelvis done earlier the same day. FINDINGS: Uterus: 7.1 x 4.5 x 5.4 cm. Endometrium: 6.8 mm. Right ovary: 3.3 x 2.3 x 2.6 cm. Left ovary: Not visualized. Uterine masses: There is a fibroid in the uterus posteriorly inferiorly measuring 3.0 x 2.5 x 3.3 cm . Small Nabothian cysts are present in the cervix. Ovarian masses: The right ovary is normal. The left ovary is not visualized. Color Doppler and pulse d Doppler sonography demonstrate normal flow to the right ovary. Other pelvic masses: There is a left adnexal complex mass measuring 3.5 x 2.4 x 3.3 cm which may be the ovary with hemorrhagic cysts. This has the appearance of ovary on the CT scan of the abdomen and pelvis done earlier the same day. Free fluid: None. IMPRESSION: 1. Fibroid in the uterus measuring 3.3 cm in maximal dimension. 2. Left adnexal mass which is probably the ovary with hemorrhagic cysts. Follow-up ultrasound in 3 months advised. 3. Otherwise unremarkable study. RPTAT: QQ .Ld Chow MD, Date Time Electronically viewed and signed by .Ld Chow MD, on 05/06/2017 11:39 .R/
[2017-05-06 12:08] VITALS: BP 129/74; PULSE 65; RESP 18; TEMP 97.9
== END 2017-05-06 12:09 | disposition home or self-care (01) ==
LOC: FTE 07:57 → E/R 12:09
DX: G89.18 Other acute postprocedural pain (principal); R40.2252 Coma scale, best verbal response, oriented, at arrival to emergency department; R10.84 Generalized abdominal pain; N83.202 Unspecified ovarian cyst, left side; R40.2142 Coma scale, eyes open, spontaneous, at arrival to emergency department; R40.2362 Coma scale, best motor response, obeys commands, at arrival to emergency department; Z87.891 Personal history of nicotine dependence
CPT/HCPCS: 74177; 76830; 76856; 80053; 81001; 85025; 85610; 85730; 96374; 96375; J1885; J2270; J2405; J7030; Q9967; Z7502; Z7610